=== PATIENT | female | born 1990 | race Caucasian/White ===

== ENCOUNTER 2017-08-06 22:14 | Emergency (ER) | payer OTHER ==
[2017-08-06 22:14] VITALS: BP 151/80; PULSE 93; RESP 16; TEMP 99.2; O2SAT 99
[~2017-08-06 22:14] MED LIST: OXYC-360 PO; PRENTAB72 PO
--- NOTE | 2017-08-06 22:48 | PD ---
HPI Chief Complaint: Building Architectural Designer Problem/Complaint Time Seen by Provider: 22:35 Travel History International Travel<30 days: No Contact w/Intl Traveler<30days: No Traveled to known affect area: No History of Present Illness HPI 27yo F presents with vaginal bleeding with clots today. Pt had an elective on Jun 16 where she [facility] [place] and had vaginal bleeding and blood clot after that. However, it had slowed down until today so decided to come for evaluation. Pt had US on Jun 14 there but does not know results. She was approximately 8 weeks at the time of elective . Denies any fever, cough, dizziness, chest pain, sob, n/v, abdominal pain, focal weakness or numbness. PFSH Past Medical History Medical History: Denies Significant Hx ?: Not Para: 1 : 1 Past Surgical History Surgical History: No Previous Surgery Social History Alcohol Use: No Tobacco Use: No Substance Use: No Allergies-Medications (Allergen,Severity, Reaction): Coded Allergies: Penicillins (Verified Allergy, Unknown, 08/06/17) Reported Meds & Prescriptions Reported Meds & Active Scripts Active No Active Prescriptions or Reported Medications Review of Systems Except as stated in HPI: all other systems reviewed are Neg Physical Exam Narrative GENERAL: 27yo F not in distress. SKIN: Focused skin assessment warm/dry. HEAD: Atraumatic. Normocephalic. EYES: Pupils equal and round. No scleral icterus. No injection or drainage. CARDIOVASCULAR: Regular rate and rhythm. No murmur appreciated. RESPIRATORY: No accessory muscle use. Clear to auscultation. Breath sounds equal bilaterally. GASTROINTESTINAL: Abdomen soft, non-tender, nondistended. Mild suprapubic ttp. No rebound tenderness or guarding. PELVIC: Cervical os closed. Small amounts of blood in vaginal vault. No CMT or adnexal tenderness bilaterally. MUSCULOSKELETAL: No obvious deformities. No clubbing. No cyanosis. No edema. NEUROLOGICAL: Awake and alert. No obvious cranial nerve deficits. Motor grossly within normal limits. Normal speech. PSYCHIATRIC: Appropriate mood and affect; insight and judgment normal. Data Data Last Documented VS Vital Signs Date Time Temp Pulse Resp B/P (MAP) Pulse Ox O2 Delivery O2 Flow Rate FiO2 08/07/17 00:45 08/06/17 22:14 99.2 93 16 99 Room Air Orders Orders Complete Blood Count With Diff (08/06/17 22:48) Comprehensive Metabolic Panel (08/06/17 22:48) Prothrombin Time / Inr (Pt) (08/06/17 22:48) Act Partial Throm Time (Ptt) (08/06/17 22:48) Type And Screen (08/06/17 22:48) Beta Hcg (Quant/Titer) (08/06/17 22:48) Urinalysis - C+S If Indicated (08/06/17 22:49) Ed Urine Pregnancytest Poc (08/06/17 22:49) Us Pelvis Preg(Sgl/1st Gestat) (08/06/17 ) Ed Discharge Order (08/07/17 00:32) Labs Laboratory Tests Test 08/06/17 23:00 08/06/17 23:15 White Blood Count 10.1 TH/MM3 Red Blood Count 4.37 MIL/MM3 Hemoglobin 13.4 GM/DL Hematocrit 38.6 % Mean Corpuscular Volume 88.3 FL Mean Corpuscular Hemoglobin 30.7 PG Mean Corpuscular Hemoglobin Concent 34.8 % Red Cell Distribution Width 12.6 % Platelet Count 227 TH/MM3 Mean Platelet Volume 8.5 FL Neutrophils (%) (Auto) 55.7 % Lymphocytes (%) (Auto) 34.9 % Monocytes (%) (Auto) 5.9 % Eosinophils (%) (Auto) 2.9 % Basophils (%) (Auto) 0.6 % Neutrophils # (Auto) 5.6 TH/MM3 Lymphocytes # (Auto) 3.5 TH/MM3 Monocytes # (Auto) 0.6 TH/MM3 Eosinophils # (Auto) 0.3 TH/MM3 Basophils # (Auto) 0.1 TH/MM3 CBC Comment DIFF FINAL Differential Comment Prothrombin Time 11.4 SEC Prothromb Time International Ratio 1.0 RATIO Activated Partial Thromboplast Time 27.1 SEC Blood Urea Nitrogen 10 MG/DL Creatinine 0.61 MG/DL Random Glucose 135 MG/DL Total Protein 7.3 GM/DL Albumin 4.0 GM/DL Calcium Level 9.0 MG/DL Alkaline Phosphatase 58 U/L Aspartate Amino Transf (AST/SGOT) 8 U/L Alanine Aminotransferase (ALT/SGPT) 18 U/L Total Bilirubin 0.6 MG/DL Sodium Level 140 MEQ/L Potassium Level 3.2 MEQ/L Chloride Level 106 MEQ/L Carbon Dioxide Level 24.4 MEQ/L Anion Gap 10 MEQ/L Estimat Glomerular Filtration Rate 116 ML/MIN Human Chorionic Gonadotropin, Quant 75 MIU/ML Urine Color YELLOW Urine Turbidity CLEAR Urine pH 6.0 Urine Specific [place] 1.031 Urine Protein TRACE mg/dL Urine Glucose (UA) NEG mg/dL Urine Ketones 10 mg/dL Urine Occult Blood LARGE Urine Nitrite NEG Urine Bilirubin NEG Urine Urobilinogen 2.0 MG/DL Urine Leukocyte Esterase NEG Urine RBC /hpf Urine WBC 2 /hpf Urine Squamous Epithelial Cells 2 /hpf Urine Bacteria RARE /hpf Urine Mucus MOD /lpf Microscopic Urinalysis Comment CULT NOT INDICATED MDM Medical Decision Making Medical Screen Exam Complete: Yes Emergency Medical Condition: Yes Differential Diagnosis Retained products of conception vs. retained blood clots vs. anemia Narrative Course 27yo F with vaginal bleeding today. No other symptoms. Labs reviewed, no leukocytosis. H/H normal at 13.4/38.6. K: 3.2, replaced orally. bHCG is 75. UA showed large blood. WBC 2. Culture not indicated. US showed heterogeneous uterus with thickened endometrium containing complex fluid/debris consistent with retained products of conception. Pt has no abdominal pain. I discussed with OB hospitalist Dr. Erickson who said pt does not need a D&C at this time and should pass on her own. Pt can follow up with OBGYN within 2 weeks. Instructed pt to return to the ED if symptoms worsen and to follow up with OBGYN. Pt said she has [facility] and can follow up with OBGYN herself. Diagnosis Primary Impression: Retained products of conception following Referrals: Jazz Chowdhury MD 2 days Retained products of conception after elective Patient Instructions: General Instructions Departure Forms: Tests/Procedures Additional Instructions: Please follow OBGYN for an appointment as soon as possible. Return to the ED if symptoms worsen. Med/Other Pt SpecificInfo: No Change to Meds Scripts No Active Prescriptions or Reported Meds Disposition: 01 DISCHARGE HOME Condition: Stable Jadyn Van DO Aug 06, 2017 22:48
[2017-08-06 23:25] LABS: AUTOMATED NEUTROPHIL # 5.6 TH/MM3 (1.8-7.7); BASOPHIL # 0.1 TH/MM3 (0-0.2); BASOPHIL % 0.6 % (0.0-2.0); EOSINOPHIL # 0.3 TH/MM3 (0-0.4); EOSINOPHIL % 2.9 % (0.0-4.0); HEMATOCRIT 38.6 % (35.0-46.0); HEMOGLOBIN 13.4 GM/DL (11.6-15.3); LYMPH % 34.9 % (9.0-44.0); LYMPHOCYTE # 3.5 TH/MM3 (1.0-4.8); MEAN CELL VOLUME 88.3 FL (80.0-100.0); MEAN CORPUSCULAR HEMOGLOBIN 30.7 PG (27.0-34.0); MEAN CORPUSCULAR HGB CONC 34.8 % (32.0-36.0); MEAN PLATELET VOLUME 8.5 FL (7.0-11.0); MONO % 5.9 % (0.0-8.0); MONOCYTE # 0.6 TH/MM3 (0-0.9); NEUT % 55.7 % (16.0-70.0); PLATELET COUNT 227 TH/MM3 (150-450); RED BLOOD COUNT 4.37 MIL/MM3 (4.00-5.30); RED CELL DISTRIBUTION WIDTH 12.6 % (11.6-17.2); WHITE BLOOD COUNT 10.1 TH/MM3 (4.0-11.0)
[2017-08-06 23:37] LABS: PROTHROMBIN TIME - PATIENT 11.4 SEC (9.8-11.6)
[2017-08-06 23:43] LABS: BACTERIA, URINE RARE /hpf; BILIRUBIN, URINE NEG (NEG); BLOOD, URINE LARGE (NEG); GLUCOSE,URINE NEG (NEG); KETONE, URINE 10 mg/dL (NEG); MUCUS URINE MOD /lpf (OCC); NITRITE,URINE NEG (NEG); SQUAMOUS EPITHELIAL CELL URINE 2 /hpf (0-5); URINE COLOR YELLOW (YELLW/STRAW); URINE LEUKOCYTE ESTERASE NEG (NEG)
[2017-08-06 23:57] LABS: ALT (GPT) 18 U/L (10-53); AST (GOT) 8 U/L (15-37); BICARBONATE 24.4 MEQ/L (21.0-32.0); BLOOD UREA NITROGEN 10 MG/DL (7-18); CHLORIDE 106 MEQ/L (98-107); CREATININE 0.61 MG/DL (0.50-1.00); GLOMERULAR FILTRATION RATE 116 ML/MIN (>89); GLUCOSE,RANDOM 135 MG/DL (74-106); SODIUM (NA) 140 MEQ/L (136-145)
[2017-08-07 00:01] LABS: ALKALINE PHOSPHATASE 58 U/L (45-117); TOTAL BILIRUBIN ADULT 0.6 MG/DL (0.2-1.0); TOTAL PROTEIN 7.3 GM/DL (6.4-8.2)
--- NOTE | 2017-08-07 00:02 | RADRPT ---
EXAM DATE/TIME: 08/06/2017 23:13 [facility] COMPARISON: No previous studies available for comparison. INDICATIONS : Excessive bleeding post 06/16/17. LAB(S): Beta-hCG: MEDICAL HISTORY : . x 1. SURGICAL HISTORY : None. ENCOUNTER: Initial ACUITY: 1 day PAIN SCORE: 6/10 LOCATION: Bilateral pelvis MEASUREMENTS: UTERUS: 8.6 x 7.6 x 4.9 cm ENDOMETRIAL STRIPE: >20 mm RIGHT OVARY: 2.1 x 1.5 x 1.2 cm LEFT OVARY: 2.5 x 1.6 x 1.3 cm FREE FLUID: None FINDINGS: UTERUS: Uterus is heterogeneous and increased in vascularity. Thickened endometrium with complex fluid/debris . Increased vascularity. No intrauterine . RIGHT OVARY: Ovary contains no mass or significant cystic lesion. LEFT OVARY: Ovary contains no mass or significant cystic lesion. MISCELLANEOUS: No free fluid. CONCLUSION: 1. Heterogeneous uterus with thickened endometrium containing complex fluid/debris consistent with re tained products of conception. Gabino Christiansen MD on August 06, 2017 at 23:59 Board Certified Radiologist. This report was verified electronically.
== END 2017-08-07 00:53 | disposition home or self-care (01) ==
LOC: NEPD 22:14
DX: O03.4 Incomplete spontaneous abortion without complication (principal); Z88.0 Allergy status to penicillin; Z34.90 Encounter for supervision of normal pregnancy, unspecified, unspecified trimester
CPT/HCPCS: 76801; 80053; 81001; 84702; 85025; 85610; 85730; 86850; 86900; 86901